=== PATIENT | male | born 1965 | race Caucasian/White ===

== ENCOUNTER 2017-02-09 11:48 | Emergency (ER) | payer MEDICAID ==
[~2017-02-09] VITALS: Ht 177.8 cm; Wt 90.0 kg
[2017-02-09 13:22] LABS: BASOPHILS % (AUTO) 0.3 % (0-1); EOSINOPHILS # (AUTO) 0.1 X10'3 (0-0.9); EOSINOPHILS % (AUTO) 1.8 % (0-6); HEMATOCRIT 38.9 % (42.0-52.0); HEMOGLOBIN 13.3 g/dl (14.0-17.9); LYMPHOCYTES # (AUTO) 1.9 X10'3 (1.1-4.8); MEAN CORPUSCULAR HEMOGLOBIN 28.9 PG (27.0-31.0); MEAN CORPUSCULAR HGB CONC 34.2 % (33.0-36.5); MEAN CORPUSCULAR VOLUME 84.4 FL (78-98); MEAN PLATELET VOLUME 8.2 FL (7.4-10.4); MONOCYTES # (AUTO) 0.9 X10'3 (0-0.9); MONOCYTES % (AUTO) 10.9 % (2-12); NEUTROPHILS # (AUTO) 5.3 X10'3 (1.8-7.7); PLATELET COUNT 189 X10'3 (140-440); RED BLOOD COUNT 4.61 X10'6 (4.70-6.10); RED CELL DISTRIBUTION WIDTH 14.6 % (11.5-14.5); WHITE BLOOD COUNT 8.3 X10'3 (4.5-11.0)
[2017-02-09 13:37] LABS: ALANINE AMINOTRANSFERASE 86 U/L (12-78); ALBUMIN 3.4 G/DL (3.4-5.0); ALBUMIN/GLOBULIN RATIO 0.9 (1.1-1.5); ALKALINE PHOSPHATASE 79 IU/L (46-116); ANION GAP 9 (8-16); ASPARTATE AMINO TRANSFERASE 51 U/L (10-37); BILIRUBIN,TOTAL 0.6 MG/DL (0.1-1.0); BLOOD UREA NITROGEN 18 MG/DL (7-18); BUN/CREATININE RATIO 24.3 (5.4-32.0); CALCIUM 9.2 MG/DL (8.5-10.1); CHLORIDE 105 MMOL/L (99-107); CREATININE 0.74 MG/DL (0.60-1.10); GLUCOSE 151 MG/DL (70-104); POTASSIUM 3.6 MMOL/L (3.5-5.1); SODIUM 140 MMOL/L (135-145); TOTAL CARBON DIOXIDE 26.5 MMOL/L (24-32); eGFR > 90 ML/MIN
[2017-02-09] MEDS ORDERED: TAM75C PO (14:52)
[2017-02-09 15:01] VITALS: BP 127/70
== END 2017-02-09 15:02 | disposition home or self-care (01) ==
LOC: ER 11:49
DX: J20.9 Acute bronchitis, unspecified (principal); B34.9 Viral infection, unspecified; E11.9 Type 2 diabetes mellitus without complications; G43.909 Migraine, unspecified, not intractable, without status migrainosus
CPT/HCPCS: 36415; 71046; 80053; 85025; 87502; 87503; 99285

== ENCOUNTER 2018-05-07 20:45 | Emergency (ER) | payer MEDICAID ==
[~2018-05-07] VITALS: Ht 175.3 cm; Wt 81.8 kg
[2018-05-07] MEDS ORDERED: ketorolac trometh inj. 60 MG/2 ML VIAL IM ONE (21:25)
[2018-05-07] MEDS ORDERED: DICL50TA8 PO (21:26)
[2018-05-07 21:48] VITALS: BP 126/94
== END 2018-05-07 21:50 | disposition home or self-care (01) ==
LOC: ER 20:45
DX: M54.5 Low back pain (principal); R10.32 Left lower quadrant pain; G43.909 Migraine, unspecified, not intractable, without status migrainosus; E11.9 Type 2 diabetes mellitus without complications; Z79.899 Other long term (current) drug therapy
CPT/HCPCS: 72100; 96372; 99284; J1885

== ENCOUNTER 2018-09-24 17:09 | Emergency (ER) | payer MEDICAID ==
[~2018-09-24] VITALS: Ht 175.3 cm; Wt 82.0 kg
[~2018-09-24 17:09] MED LIST: DICL50TA8 PO
--- NOTE | 2018-09-24 18:20 | NUR ---
Dr. Camacho speaking with Moises (brother), Avery (brother) and several other family members here in ER. Family requesting pt body sent to [facility] on [address]. Addendum: 09/24/18 at 1906 by SERA Family reports pt was homeless and currently staying on sister's couch at residence that EMS responded to.
--- NOTE | 2018-09-24 19:00 | NUR ---
[facility]
[2018-09-24] MEDS ORDERED: sodium bicarbonate (8.4%) 1 mEq/ml syringe ONE (20:00)
[2018-09-24] MEDS ORDERED: calcium chloride 100 MG/1 ML inj IV ONE (20:00)
[2018-09-24] MEDS ORDERED: epiNEPHrine 0.1mg/ml 10ml syringe ONE (20:00)
[2018-09-24] MEDS ORDERED: dextrose 50%-water 50ml dispensing syringe IV ONE (20:00)
--- NOTE | 2018-09-25 07:23 | NUR ---
LATE ENTERY : 10 CC OF BLOOD WAS DRAWN FROM RIGHT NECK VEIN. BLOOD WAS PLACED IN RAINBOW TUBES AND ONE EXTRA GREEN TUBE BY MANAGER TRANSITION. I TOOK 1 GREEN TOP INTO THE BACK ROOM AND RAN AN I-STAT ON IT. WHEN I CAME OUT OF THE ROOM WITH THE RESULTS THE PT. HAD BEEN PRONOUNCED BY DR. ANN. I TOLD HIM THE CLINICAL RESEARCH SCIENTIST WOULD WANT TO TAKE THE BLOOD SO I WOULD SEND IT TO THE LAB TO BE PLACED IN THE . I ASKED HIM DID HE WANT THE LAB TO RUN ANY OF THE TEST HE HAD ORDERED. HE SAID NO THERE IS NO NEED NOW. THE I-STAT TUBE WAS SPUN IN ; Addendum: 09/25/18 at 0727 by ALONDRA THE I-STAT TUBE HAD HEMOLISED SO THE RESULTS WERE WRONG. THE LAB CANCELED ALL THE OTHER TEST THAT HAD BEEN ORDERED. CLINICAL RESEARCH SCIENTIST CAME AND PICKED UP PT. AND DID ASK FOR THE BLOOD TUBES THAT WE EMMETT.
== END 2018-09-24 19:42 | disposition expired ==
LOC: ER 17:10
DX: I46.9 Cardiac arrest, cause unspecified (principal); G43.909 Migraine, unspecified, not intractable, without status migrainosus; E11.9 Type 2 diabetes mellitus without complications; G89.29 Other chronic pain; Z79.899 Other long term (current) drug therapy
CPT/HCPCS: 80047; 92950; 99285; J0171